=== PATIENT | female | born 1955 | race Caucasian/White ===

== ENCOUNTER 2016-10-13 15:03 | Emergency (ER) | payer OTHER ==
[~2016-10-13] VITALS: Ht 157.5 cm; Wt 74.5 kg
[2016-10-13 15:13] VITALS: Ht 157.5 cm; Wt 74.5 kg
[2016-10-13] MEDS ORDERED: KETOROLAC 30 MG INJ IM STA (16:02)
[2016-10-13] MEDS ORDERED: ONDANSETRON (ODT) 4 MG TAB ODT STA (16:02)
[2016-10-13] MEDS ORDERED: HYDROCODONE/APAP (5/325) TAB PO ONE (16:30)
[2016-10-13 16:48] LABS: ADD SCAN DIFF NO
[2016-10-13 16:49] LABS: BASOPHIL # 0.1 10^3/ul (0.0-0.1); BASOPHILS % 0.7 % (0.0-2.0); EOSINOPHILS # 0.2 10^3/ul (0.0-0.5); EOSINOPHILS % 1.9 % (0.0-7.0); HEMATOCRIT 41.4 % (37.0-47.0); LYMPHOCYTES # 3.4 10^3/ul (0.8-2.9); LYMPHOCYTES % 37.3 % (15.0-51.0); MEAN CORPUSCULAR HEMOGLOBIN 30.6 pg (29.0-33.0); MEAN CORPUSCULAR HGB CONC 33.8 g/dl (32.0-37.0); MEAN CORPUSCULAR VOLUME 90.4 fl (82.0-101.0); MEAN PLATELET VOLUME 8.6 fl (7.4-10.4); MONOCYTE # 0.5 10^3/ul (0.3-0.9); MONOCYTES % 5.9 % (0.0-11.0); NEUTROPHIL # 4.9 10^3/ul (1.6-7.5); NEUTROPHILS % 53.9 % (39.0-77.0); PLATELET COUNT 367 10^3/UL (140-415); RED BLOOD COUNT 4.58 10^6/ul (4.20-5.40); RED CELL DISTRIBUTION WIDTH 12.2 % (11.5-14.5); WHITE BLOOD COUNT 9.1 10^3/ul (4.8-10.8)
[2016-10-13 16:51] LABS: ADD UMIC YES; URINE BILIRUBIN (Dip) NEGATIVE (NEGATIVE); URINE BLOOD (Dip) 1+ (NEGATIVE); URINE COLOR LT. YELLOW (YELLOW); URINE GLUCOSE (Dip) NEGATIVE (NEGATIVE); URINE KETONES (Dip) NEGATIVE (NEGATIVE); URINE LEUKOCYTE ESTERASE (Dip) NEGATIVE (NEGATIVE); URINE NITRITE (Dip) NEGATIVE (NEGATIVE); URINE TOTAL PROTEIN (Dip) NEGATIVE (NEGATIVE); URINE UROBILINOGEN (Dip) 0.2 E.U./dL (0.1-1.0)
[2016-10-13 17:17] LABS: ALBUMIN/GLOBULIN RATIO 1.51; BILIRUBIN,INDIRECT 0.1 mg/dl (0-1.1); BILIRUBIN,TOTAL 0.1 mg/dl (0.2-1.3); CREATININE 0.69 mg/dl (0.44-1.00); POTASSIUM 3.6 mmol/L (3.5-5.1); TOTAL PROTEIN 8.3 g/dl (6.1-8.1)
[2016-10-13] MEDS ORDERED: TRAM50TA2 PO (17:50)
[2016-10-13] MEDS ORDERED: METH500T PO (17:50)
--- NOTE | 2016-10-13 17:54 | ERD ---
ER Documentation Chief Complaint Date/Time DATE: 10/13/16 TIME: 17:51 Chief Complaint Sent from for eval left flank pain HPI This 61-year-old female presents to referral from provider at clinic for right back pain. Patient has a history of degenerative disc disease L4-L5, gallstones and a nonspecific renal cysts which she brings copies of reports. She also brought some normal lab results from 3 months ago. Patient denies any vomiting, abdominal pain, urinary complaints or history of trauma. She points to the right L4-L5 area the lower back as the area of pain. She is getting no relief from ibuprofen. ROS All systems reviewed and are negative except as per history of present illness. Medications Home Meds Active Scripts Methocarbamol* (Robaxin*) 500 Mg Tab, 500 MG PO Q6, #20 TAB Prov:PIOTR NOBLES MD 10/13/16 Tramadol HCl (Tramadol HCl) 50 Mg Tablet, 50 MG PO Q4 Y for PAIN, #20 TAB Prov:PIOTR NOBLES MD 10/13/16 Allergies Allergies: Coded Allergies: No Known Allergy (Unverified , 10/13/16) PMhx/Soc History of Surgery: Yes (HYSTERECTOMY) Hx Cardiac Disorders: Yes (HTN) Hx Miscellaneous Medical Probl: Yes (DM) Hx Alcohol Use: No Hx Substance Use: No Hx Tobacco Use: No Physical Exam Vitals Vital Signs Date Time Temp Pulse Resp B/P Pulse Ox O2 Delivery O2 Flow Rate FiO2 10/13/16 15:13 98.4 74 20 143/80 98 Physical Exam Const: [] Fluid, [id number] Head: Atraumatic Eyes: Normal Conjunctiva ENT: Normal External Ears, Nose and Mouth. Neck: Full range of motion..~ No meningismus. Resp: Clear to auscultation bilaterally Cardio: Regular rate and rhythm, no murmurs Abd: Soft, non tender, non distended. Normal bowel sounds Skin: No petechiae or rashes Back: No midline or flank tenderness. There is tenderness in the right L4-5 S1 area paraspinous muscles without midline tenderness or deformities. Ext: No cyanosis, or edema Neur: Awake and alert. Normal gait. No appreciable focal neurologic deficits. Psych: Normal Mood and Affect Result Diagram: 10/13/16 1609 10/13/16 1609 Results 24 hrs Laboratory Tests Test 10/13/16 16:09 10/13/16 16:25 White Blood Count 9.110^3/ul Red Blood Count 4.5810^6/ul Hemoglobin 14.0g/dl Hematocrit 41.4% Mean Corpuscular Volume 90.4fl Mean Corpuscular Hemoglobin 30.6pg Mean Corpuscular Hemoglobin Concent 33.8g/dl Red Cell Distribution Width 12.2% Platelet Count 90976^3/UL Mean Platelet Volume 8.6fl Neutrophils % 53.9% Lymphocytes % 37.3% Monocytes % 5.9% Eosinophils % 1.9% Basophils % 0.7% Nucleated Red Blood Cells % 0.0/100WBC Neutrophils # 4.910^3/ul Lymphocytes # 3.410^3/ul Monocytes # 0.510^3/ul Eosinophils # 0.210^3/ul Basophils # 0.110^3/ul Nucleated Red Blood Cells # 0.010^3/ul Sodium Level 143mmol/L Potassium Level 3.6mmol/L Chloride Level 104mmol/L Carbon Dioxide Level 25mmol/L Anion Gap 18 Blood Urea Nitrogen 24mg/dl Creatinine 0.69mg/dl Glucose Level 104mg/dl Calcium Level 10.0mg/dl Total Bilirubin 0.1mg/dl Direct Bilirubin 0.00mg/dl Indirect Bilirubin 0.1mg/dl Aspartate Amino Transf (AST/SGOT) 24IU/L Alanine Aminotransferase (ALT/SGPT) 44IU/L Alkaline Phosphatase 71IU/L Total Protein 8.3g/dl Albumin 5.0g/dl Globulin 3.30g/dl Albumin/Globulin Ratio 1.51 Lipase 149U/L Urine Color LT. YELLOW Urine Clarity CLEAR Urine pH 5.5 Urine Specific [place] 1.025 Urine Ketones NEGATIVE Urine Nitrite NEGATIVE Urine Bilirubin NEGATIVE Urine Urobilinogen 0.2 E.U./dL Urine Leukocyte Esterase NEGATIVE Urine Microscopic RBC 2-5/HPF Urine Microscopic WBC 0-2/HPF Urine Hemoglobin 1+ Urine Glucose NEGATIVE% Urine Total Protein NEGATIVE Current Medications Medications (Trade) Dose Ordered Sig/Mike Route PRN Reason Start Time Stop Time Status Last Admin Dose Admin Acetaminophen/ Hydrocodone Bitart (Girard (5/325)) 1 tab ONCE ONCE PO 10/13/16 16:30 10/13/16 16:31 DC 10/13/16 16:09 Ondansetron HCl (Zofran Odt) 8 mg ONCE STAT ODT 10/13/16 16:02 10/13/16 16:04 DC 10/13/16 16:09 Ketorolac Tromethamine (Toradol) 30 mg ONCE STAT IM 10/13/16 16:02 10/13/16 16:04 DC 10/13/16 16:10 Procedures/MDM Patient presents with right low back pain consistent with musculoskeletal back pain. Given PCP concern CBC and CMP were performed which shows no abnormalities to suggest gallbladder complications. Urine shows 1+ hemoglobin without leukocytes, nitrites or glucose. Patient was given Toradol 30 mg IM and Girard 5 mg by mouth. Patient is ambulatory throughout the ED course. Signs or symptoms do not suggest epidural abscess, pyelonephritis, cholecystitis , choledocholithiasis, acute abdomen. Patient will referred back to her primary doctor for further evaluation ongoing primary care. There is a recommendation by the radiologist to have a CT with IV contrast to further evaluate right renal cyst but this can be done as an outpatient with better preparation as the patient is taking Glucophage current emergency evaluation not indicated. Patient was advised to return for fevers, vomiting, shortness of breath, new or symptoms with primary doctor as directed. Departure Diagnosis: Primary Impression: Back pain Back pain location: low back pain Chronicity: acute Back pain laterality: right Sciatica presence: without sciatica Qualified Code: M54.5 - Acute right-sided low back pain without sciatica Condition: Stable Patient Instructions: Back Pain (Acute Or Chronic) Additional Instructions: Labs normal today. Pain appears to be from lower back pain or musculoskeletal pain. See primary doctor for follow-up. Recommend orthopedist or specialist for evaluation for back pain. Recheck for fevers, vomiting, abdominal pain, new or worsening symptoms. PIOTR NOBLES MD Oct 13, 2016 17:53
[2016-10-13 17:59] VITALS: BP 128/74; PULSE 87; RESP 18
== END 2016-10-13 17:59 | disposition home or self-care (01) ==
LOC: FTE 15:03
DX: M54.5 Low back pain (principal); I10 Essential (primary) hypertension; E11.9 Type 2 diabetes mellitus without complications
CPT/HCPCS: 36415; 80053; 81001; 83690; 85025; 96372; J1885; Z7502; Z7610

== ENCOUNTER 2017-01-03 09:59 | Day surgery (SDC) | payer OTHER ==
[2017-01-03] VITALS (13 sets, daily range): BP systolic 126–154; BP diastolic 60–70; PULSE 18–92; RESP 13–18
[~2017-01-03 09:59] MED LIST: CEFAZOLIN 1 GM INJ ONE; EPHEDrine SULFATE 50 MG/5 ML SYG ONE; METH500T PO; TRAM50TA2 PO
[2017-01-03] MEDS ORDERED: CEFAZOLIN 2 GM/50 ML (PMX) 50 ML IVPB SCH (10:00)
[2017-01-03] MEDS ORDERED: SOD CHLORIDE 0.9% 1,000 ML IV SCH (10:00)
[2017-01-03] MEDS ORDERED: LOVA20TA PO (11:45)
[2017-01-03] MEDS ORDERED: LISI1TAB8 PO (11:46)
[2017-01-03] MEDS ORDERED: DOCU-144 PO (11:47)
[2017-01-03] MEDS ORDERED: METF500T4 PO (11:47)
[2017-01-03] MEDS ORDERED: CYCL-319 PO (11:48)
[2017-01-03] MEDS ORDERED: TRAM-40 PO (11:48)
[2017-01-03] MEDS ORDERED: PROPOFOL 20 ML ONE (14:38)
[2017-01-03] MEDS ORDERED: FENTAnyl 50 MCG/ML VIAL ONE (14:38)
[2017-01-03] MEDS ORDERED: ROCURONIUM 50 MG INJ ONE (14:38)
[2017-01-03] MEDS ORDERED: ROPIVACAINE 0.2% 20 ML VIAL ONE (14:39)
[2017-01-03] MEDS ORDERED: MIDAZOLAM 1 MG/ML 2 ML INJ ONE (14:39)
[2017-01-03] MEDS ORDERED: BUPIVACAINE 0.25% (MPF) 30 ML INJ ONE (14:49)
[2017-01-03] MEDS ORDERED: DEXAMETHASONE 4 MG/ML 1 ML INJ ONE (15:47)
[2017-01-03] MEDS ORDERED: SUGAMMADEX SODIUM 200 MG/2 ML VIAL IV ONE (15:47)
[2017-01-03] MEDS ORDERED: METOCLOPRAMIDE 10 MG INJ ONE (15:47)
[2017-01-03] MEDS ORDERED: ONDANSETRON 4 MG INJ ONE (15:47)
[2017-01-03] MEDS ORDERED: KETOROLAC 30 MG INJ ONE (15:47)
--- NOTE | 2017-01-03 15:56 | OPR ---
Date/Time of Note Date/Time of Note DATE: 01/03/17 TIME: 15:53 Operative Report Procedure Date: Jan 03, 2017 Preoperative Diagnosis symptomatic gallstones Postoperative Diagnosis same Operation Performed 1. laparoscopic cholecystectomy 2. therapeutic injection of subcutaneous marcaine cpt code 79135 Anesthesia Type: general Estimated Blood Loss: 0 - 10 ml's Specimens gallbladder Grafts/Implants: none Complications: no Indications 58-year-old female with subsided gallstones. She requires surgical excision of her gallbladder. Risks alternatives benefits and percent were discussed the patient. Patient expresses understanding consents to the operation. Procedure Description Patient is taken to the OR and prepped and draped in usual sterile fashion. Surgical timeout was performed. IV antibiotics given. Infraumbilical incision is made transversely with a 15 blade. Dissection cautery was carried onto the fascia which was grasped with Mariangel's and divided with curved Hugo scissors. [id number] 0 Vicryl stitch was placed into the fascia. Balloon Hou trocar was introduced pneumoperitoneum was established. Midepigastric 12 mm optical trocar was placed under direct visualization. Right upper quadrant right upper flank 5 mm optical traverse placed under direct visualization. Upon initial inspection there is adhesions to her gallbladder. The gallbladder was grasped in the lateral and outward maneuver. Lateral dissection was started with cautery. The cystic duct was dissected carefully. The critical view was established. The cystic duct was divided with 3 clips proximal 1 clip distal. The cystic artery was divided with 3 clips proximal 1 clip distal. The gallbladder was taken off the gallbladder bed. There is good hemostasis. The gallbladder was retrieved using an Endo Catch bag. Ports removed under direct visualization. 0 Vicryl [id number] stitch was tied down. Skin was closed using skin felicitas. Therapeutic subcutaneous Marcaine was injected throughout the port sites. Dry dressings were applied. Simone CHAVEZ Jan 03, 2017 15:56
[2017-01-03] MEDS ORDERED: METOCLOPRAMIDE 10 MG INJ IV PRN (16:00)
[2017-01-03] MEDS ORDERED: DIPHENHYDRAMINE 50 MG INJ IV PRN (16:00)
[2017-01-03] MEDS ORDERED: HYDROmorphONE (0.2 MG/ML) 10ML SYG IV PRN ×3 (16:00)
[2017-01-03] MEDS ORDERED: FENTAnyl 50 MCG/ML VIAL IV PRN ×3 (16:00)
[2017-01-03] MEDS ORDERED: ONDANSETRON 4 MG INJ IV PRN (16:00)
[2017-01-03] MEDS ORDERED: HYDROCODONE/APAP (5/325) TAB PO ONE (16:00)
[2017-01-03] MEDS ORDERED: LABETALOL HCL 20MG INJ IV PRN (16:00)
[2017-01-03] MEDS ORDERED: MEPERIDINE 25 MG INJ IV PRN (16:00)
[2017-01-03] MEDS ORDERED: hydrALAzine 20 MG INJ IV PRN (16:00)
[2017-01-03] MEDS ORDERED: EPHEDrine SULFATE 50 MG/5 ML SYG IV PRN (16:00)
== END 2017-01-03 17:50 | disposition home or self-care (01) ==
LOC: SDS 09:59
PROVIDERS: ATTEND Surgery
DX: K80.10 Calculus of gallbladder with chronic cholecystitis without obstruction (principal); E11.9 Type 2 diabetes mellitus without complications; I10 Essential (primary) hypertension; E78.5 Hyperlipidemia, unspecified
CPT/HCPCS: 47562; 82962; 88304; J0690; J2250; J2795; J3010; Z7512; Z7610; J1100; J1885; J2405; J2765

== ENCOUNTER 2017-10-19 13:51 | Emergency (ER) | END 2017-10-19 15:24 | disposition home or self-care (01) ==